=== PATIENT | male | born 1990 | race Caucasian/White ===

== ENCOUNTER 2021-02-17 10:37 | Outpatient (CLI) | payer BC ==
--- NOTE | 2021-02-17 12:39 | XRAY Report ---
PROCEDURE: Clavicle RT INDICATIONS: FX OF UNSPECIFIED PART OF R CLAVICLE TECHNIQUE: 2 views of the clavicle were acquired. COMPARISON: None. FINDINGS: Bones: No dislocations. No suspicious bony lesions. There is a diagonal mid shaft fracture involvi ng the right clavicle, mildly displaced. Soft tissues: No suspicious soft tissue calcifications. IMPRESSION: Mid shaft right clavicular fracture displacement is mild in severity. No prior comparison. Reviewed by: Thomas Meyer MD on 02/17/2021 12:38 PM PDT Approved by: Thomas Meyer MD on 02/17/2021 12:38 PM PDT Station ID: [id number]
== END 2021-02-17 23:59 | disposition home or self-care (01) ==
LOC: DI.N 10:37
PROVIDERS: ATTEND Physician Assistant
DX: S42.021A Displaced fracture of shaft of right clavicle, initial encounter for closed fracture (principal)

== ENCOUNTER 2021-04-08 17:24 | Outpatient (CLI) | payer BC ==
--- NOTE | 2021-04-08 15:37 | XRAY Report ---
PROCEDURE: Clavicle RT INDICATIONS: FX OF R CLAVICLE TECHNIQUE: 2 views of the clavicle were acquired. COMPARISON: Prior clavicular plain films from 02/17/2021. FINDINGS: Bones: No fractures or dislocations. No suspicious bony lesions. Soft tissues: No suspicious soft tissue calcifications. IMPRESSION: Interval blurring of the fracture margins at the clavicular fracture on the right, indicating healing . No definite change in alignment. Reviewed by: Thomas Meyer MD on 04/08/2021 3:35 PM PDT Approved by: Thomas Meyer MD on 04/08/2021 3:35 PM PDT Station ID: [id number]
== END 2021-04-08 23:59 | disposition home or self-care (01) ==
LOC: DI.N 17:24
PROVIDERS: ATTEND Physician Assistant
DX: S42.001D Fracture of unspecified part of right clavicle, subsequent encounter for fracture with routine healing (principal)

== ENCOUNTER 2024-07-21 08:00 | Outpatient (CLI) | payer BC ==
--- NOTE | 2024-07-21 15:37 | XRAY Report ---
PROCEDURE: Hand 3+V LT INDICATIONS: LEFT HAND INJURY TECHNIQUE: 3 views of the hand(s) acquired. COMPARISON: None. FINDINGS: Bones: No acute displaced fracture or dislocation. Soft tissues: No suspicious calcifications. IMPRESSION: No acute radiographic abnormality. If there is high concern for occult injury, consider repeat radiog levi or cross-sectional imaging. Reviewed by: Florentino Madison MD on 07/21/2024 3:36 PM PDT Approved by: Florentino Madison MD on 07/21/2024 3:36 PM PDT Station ID: [id number]
--- NOTE | 2024-07-21 15:38 | XRAY Report ---
PROCEDURE: Wrist 3+V LT INDICATIONS: LEFT WRIST INJURY TECHNIQUE: 3 views of the wrist were acquired. COMPARISON: None. FINDINGS: Bones: No acute displaced fracture or dislocation. Soft tissues: No suspicious calcifications. IMPRESSION: No acute radiographic abnormality. If there is high concern for occult injury, consider repeat radiog levi or cross-sectional imaging. Reviewed by: Florentino Madison MD on 07/21/2024 3:36 PM PDT Approved by: Florentino Madison MD on 07/21/2024 3:36 PM PDT Station ID: [id number]
== END 2024-07-21 23:59 | disposition home or self-care (01) ==
LOC: DI.S 08:00
PROVIDERS: ATTEND Physician Assistant
DX: S69.92XA Unspecified injury of left wrist, hand and finger(s), initial encounter (principal)